=== PATIENT | female | born 1955 | race Caucasian/White ===

== ENCOUNTER → 2017-03-13 | Day surgery (SDC) | payer BC ==
[~2017-03-13] MED LIST: LIDOCAINE 2% MDV (20MG/ML) 20ML VIAL IV ONE; MIDAZOLAM HCL 2MG/2ML VIAL IV ONE; PROPOFOL 10 MG/ML VIAL IV ONE
--- NOTE | 2017-03-13 12:30 | Operative Note ---
DATE OF SURGERY: 03/13/2017 REFERRING PROVIDER: Zain Escobar DO PREOPERATIVE DIAGNOSIS: Colon cancer screening, initial exam. POSTOPERATIVE DIAGNOSES: 1. Sigmoid diverticulosis. 2. Rectosigmoid colon polyps. OPERATION: COLONOSCOPY with cold forceps polypectomy x2. PROCEDURE: After informed consent was obtained, the patient was placed in the left lateral decubitus position in the endoscopy suite, sedated and monitored by the Department of Anesthesia. Digital rectal exam was unremarkable. A well-lubricated PCF-180 colonoscope was inserted into the rectum and advanced to the cecum. Transabdominal pressure was required to intubate the cecal cap. The preparation quality was good. The cecum, ileocecal valve, ascending colon, appendiceal orifice, transverse colon, and descending colon were free from inflammatory changes, mass lesions or polyps. There were mild to moderate diverticular changes in the sigmoid colon. There were 2 diminutive rectosigmoid colon polyps, each removed with a cold forceps. The rectum was unremarkable in forward views. The endoscope was straightened, the rectal ampulla deflated and the endoscope was removed. RECOMMENDATIONS: The patient should follow a high-fiber diet. She will require exam in 5-10 years pending tissue histology. As always, thank you for allowing me to participate in the health care of your patients. CC: Zain Escobar DO [facility]
== END | disposition home or self-care (01) ==
LOC: HOP 08:27
PROVIDERS: ATTEND Internal Medicine Gastroenterology
DX: Z12.11 Encounter for screening for malignant neoplasm of colon (principal); K57.30 Diverticulosis of large intestine without perforation or abscess without bleeding; I10 Essential (primary) hypertension